=== PATIENT | female | born 2000 ===

== ENCOUNTER 2018-10-15 09:23 | Outpatient (REF) | payer OTHER, SELFPAY ==
[2018-10-15 21:21] LABS: HCT 40.1 % (36.0-46.0); HGB 13.7 g/dL (12.0-15.5); Mean Corp. HGB Concentration 34.2 g/dL (32.0-36.0); Mean Corpuscular Volume 87.7 fL (80-95); Mean Platelet Volume 10.9 fL (8.0-11.0); Platelet Count 268 x1000/uL (130-400); RBC 4.57 m/cumm (4.00-5.20); RBC Distribution Width 12.5 % (11.7-14.6); White Blood Cell Count 7.65 k/cumm (4.4-10.8)
[2018-10-15 21:22] LABS: ALT 23 U/L (12-78); AST 15 U/L (15-37); Albumin 3.9 g/dL (3.4-5.0); Alkaline Phosphatase 87 U/L (46-116); Anion Gap 8.6 mmol/L (3-11); BUN 9 mg/dL (7-18); Bilirubin, Total 0.3 mg/dL (0.2-1.0); CO2 26.4 mmol/L (21.0-32.0); CREATININE 0.82 mg/dL (0.55-1.02); Chloride 106 mmol/L (98-107); Glucose 93 mg/dL (70-100); Sodium 141 mmol/L (136-145); Total Protein 7.7 g/dL (6.4-8.2)
[2018-10-15 22:27] LABS: Hemoglobin A1C 4.8 % (4.5-6.2)
[2018-10-15 22:31] LABS: Vitamin D 25 Total 36.3 ng/ml (30-100)
[2018-10-19 10:07] LABS: TSH (W/Ref FT4) 1.75 uIU/mL (0.36-3.74)
[2018-10-19 12:08] LABS: Lyme Ab w Rflx to Lyme Confirm Negative
[2018-10-19 12:37] LABS: Anaplasma phagocytophilum Negative (Negative); B. miyamotoi PCR Negative (Negative); Babesia divergens/MO-1 Negative (Negative); Babesia duncani Negative (Negative); Babesia microti Negative (Negative); Ehrlichia chaffeensis Negative (Negative); Ehrlichia ewingii/canis Negative (Negative); Ehrlichia muris eauclairensis Negative (Negative)
== END 2018-10-15 09:43 ==
LOC: NCHCN 09:23
PROVIDERS: PCP Family Medicine; Visit Provider Family Medicine
DX: M79.10 Myalgia, unspecified site (principal); R53.83 Other fatigue; R21 Rash and other nonspecific skin eruption; E66.9 Obesity, unspecified; N39.0 Urinary tract infection, site not specified; R63.5 Abnormal weight gain
CPT/HCPCS: 80053; 82306; 85027; 87798; 83036; 84443; 86618; 87086

== ENCOUNTER 2020-01-21 16:55 | Outpatient (REF) | payer OTHER, SELFPAY ==
[2020-01-27 09:03] LABS: Testosterone, Free 0.73 ng/dL (0.06-1.08); Testosterone, Total 33 ng/dL (8-60)
== END 2020-01-21 17:15 ==
LOC: NCHCN 16:55
PROVIDERS: PCP Family Medicine; Visit Provider Family Medicine
DX: E28.2 Polycystic ovarian syndrome (principal)
CPT/HCPCS: 84402; 84403

== ENCOUNTER 2021-01-11 15:20 | Outpatient (REF) | payer OTHER, SELFPAY | END 2021-01-11 15:21 | disposition home or self-care (01) | LOC: NCHCN 15:20 | PROVIDERS: PCP Family Medicine; Visit Provider Nurse Practitioner Community Health | DX: R30.0 Dysuria (principal) | CPT/HCPCS: 87086 ==

== ENCOUNTER 2021-01-31 20:43 | Outpatient (REF) | payer OTHER, SELFPAY | END 2021-01-31 20:44 | disposition home or self-care (01) | LOC: NCHCN 20:43 | PROVIDERS: PCP Family Medicine; Visit Provider Nurse Practitioner Community Health | DX: R30.0 Dysuria (principal) | CPT/HCPCS: 87086 ==

== ENCOUNTER 2023-03-07 22:21 | Outpatient (REF) | payer OTHER, SELFPAY ==
[2023-03-10 10:29] LABS: HIV-1/2 Ag & Ab Screen Negative (Negative)
== END 2023-03-07 22:22 | disposition home or self-care (01) ==
LOC: NCHCN 22:21
PROVIDERS: PCP Family Medicine; Visit Provider Family Medicine
DX: R30.0 Dysuria (principal); Z11.4 Encounter for screening for human immunodeficiency virus [HIV]
CPT/HCPCS: 87389; 87086